=== PATIENT | male | born 1975 | race Caucasian/White ===

== ENCOUNTER 2022-06-05 09:30 | Outpatient (CLI) | payer OTHER, SELFPAY ==
[2022-06-05 09:52] LABS: Hematocrit 41.8 % (42.0-52.0); Hemoglobin 13.9 g/dL (14.0-18.0); Mean Corpuscular HGB Conc 33.3 g/dl (32-36); Mean Corpuscular Hemoglobin 30.5 pg (26-34); Mean Corpuscular Volume 91.7 fl (80-100); Platelet Count Result 191 k/mm3 (150-375); Red Blood Count 4.56 M/mm3 (4.6-6.20); Red Cell Distribution Width 12.2 % (11.5-14.5); White Blood Count 4.5 K/mm3 (4.5-10.0)
[2022-06-05 10:09] LABS: Alanine Aminotransferase 25 U/L (6-50); Albumin Level 4.9 g/dL (3.5-5.1); Alkaline Phosphatase 57 U/L (38-126); Anion Gap 11 mmol/L (8-16); Aspartate Amino Transferase 33 U/L (17-59); Bilirubin,Total 0.9 mg/dL (0.2-1.3); Blood Urea Nitrogen 15 mg/dL (9-20); Calcium 9.1 mg/dL (8.4-10.2); Carbon Dioxide 25 mmol/L (22-30); Chloride 101 mmol/L (98-107); Cholesterol 252 mg/dL (0-200); Estimated Glomerular Filt Rate > 60; Glucose 100 mg/dL (65-110); HDL Direct 46 mg/dL; Potassium 4.2 mmol/L (3.4-5.0); Sodium 137 mmol/L (137-145); Triglycerides 99 mg/dL (<150)
[2022-06-05 10:20] LABS: LDL Cholesterol Direct 157 mg/dL
[2022-06-05 10:39] LABS: Prostate Specific Antigen 0.2 ng/mL (< OR = 4.0)
[2022-06-05 11:25] LABS: Folic Acid > 20.0 ng/mL (2.76->20)
== END 2022-06-05 09:31 | disposition home or self-care (01) ==
LOC: ANHLAB 09:31
PROVIDERS: PCP Physician Assistant; Visit Provider Physician Assistant
DX: Z00.00 Encounter for general adult medical examination without abnormal findings (principal); Z12.5 Encounter for screening for malignant neoplasm of prostate
CPT/HCPCS: 36415; 80053; 80061; 82607; 82746; 84153; 84443; 85027; G0103

== ENCOUNTER → 2022-06-21 11:47 | Outpatient (CLI) | payer OTHER, SELFPAY ==
--- NOTE | ~2022-06-21 | MR_ITS ---
EXAMINATION: MR elbow LT wo con DATE: 06/21/2022 12:42 INDICATION: Unspecified injury of left shoulder and upper arm, initial evaluation. Left elbow pain. TECHNIQUE: Magnetic resonance imaging (MRI) of the left elbow was performed without intravenous contr ast. COMPARISON: Left elbow radiographs 06/08/2022 FINDINGS: Osseous/other: Bone alignment is normal. No fracture. Bone marrow signal intensity is normal. There is shallow parti al-thickness cartilage loss in ulnohumeral joint. Tendons: The common flexor and common extensor tendons are normal. Triceps tendon is normal. Brachialis tendon is normal. There is a partial tear of distal biceps tendon. Ligaments: Radial collateral ligament, lateral ulnar collateral ligament, and ulnar collateral ligament are norm al. Cubital tunnel: The ulnar nerve is normal. Fluid: There is no elbow joint effusion. There is mild bicipitoradial bursitis. IMPRESSION: 1. Partial tear of distal biceps tendon. 2. Mild elbow joint chondrosis. Reviewed, dictated and finalized at location A. [employer]
== END ==
PROVIDERS: PCP Internal Medicine; Visit Provider Orthopaedic Surgery
DX: S49.82XA Other specified injuries of left shoulder and upper arm, initial encounter (principal); X58.XXXA Exposure to other specified factors, initial encounter
CPT/HCPCS: 73221

== ENCOUNTER 2022-07-17 01:19 | Day surgery (SDC) | payer OTHER, SELFPAY ==
[2022-07-17 12:35] VITALS: BP 129/78; PULSE 69; RESP 15; TEMP 36.4; O2SAT 99; BMI 25.9
[2022-07-17] MEDS: LACTATED RINGERS 1,000 ML 150 ML IV CONT (12:45)
--- NOTE | 2022-07-17 13:03 | WPDANESEPPF ---
Anes - Initial Pre Proc Eval Procedure: Operation Date: 07/17/22 14:00 Proposed Procedures p Screening Colonoscopy - Armin Vazquez MD Date/Time: 07/17/22 13:03 Surgeon: Armin Vazquez MD Pre Op Diagnosis: neoplasm screening Patient Data Age: 47 Gender: M Height: 1.75 m Weight: 79.8 kg Last Vital Signs Temp 36.4 C L 07/17/22 12:35 Pulse 69 07/17/22 12:35 Resp 15 07/17/22 12:35 BP 129/78 07/17/22 12:35 Pulse Ox 99 07/17/22 12:35 O2 Del Method Room Air 07/17/22 12:35 Allergies Allergy/AdvReac Type Severity Reaction Status Date / Time No Known Allergies Allergy Verified 07/17/22 12:31 Home Medications Medication Instructions Recorded Confirmed Type cetirizine 10 mg tablet (Zyrtec) 10 mg PO DAILY allergy symptoms 12/01/21 07/17/22 Rx #90 tabs fluticasone propionate 50 2 spray intranasal DAILY #16 grams 12/01/21 07/17/22 Rx mcg/actuation nasal spray,suspension (Flonase Allergy Relief) triamcinolone acetonide 0.1 % 1 applic topical BID #80 grams 12/01/21 07/17/22 Rx topical cream bupropion HCl 300 mg 24 hr tablet, 300 mg PO QAM 05/01/22 07/17/22 History extended release (Wellbutrin XL) atomoxetine 80 mg capsule 80 mg PO DAILY 06/05/22 07/17/22 History (Strattera) pramipexole 0.125 mg tablet 0.375 mg PO QHS #270 tabs 07/13/22 07/17/22 Rx (Mirapex) Patient hx anesthesia problems: none Family hx anesthesia problems: none Results Review: All pre-operative results and documents have been reviewed as part of the pre-operative evaluation. FOR[facility]LY [facility], LAT[facility] Past Medical History Medical History Allergies Anxiety Chronic headaches Gastric ulcer GERD (gastroesophageal reflux disease) Left upper arm injury Migraine Surgical History Surgical History History of vasectomy Family History Family History Father Thyroid disorder Sibling Alcoholism Unknown Depression Grandparent Breast cancer Social History Social History Smoking packs per day: 1 Smoking cigarettes per day: 20.0 Smoking status: Former smoker Tobacco type: cigarettes Second hand tobacco smoke exposure: No Smoking end date: 08/13/05 Alcohol intake: current Substance use: unknown Lack of Transportation: No Lack of Food: Never True Current Housing: I Have Housing Concerned About Future Housing: No Difficulty Paying for Meds: No Currently Unemployed: No Education: Master's Degree or Higher Difficulty w/ Childcare or Family Care: No Living arrangements: with family Gender identity (if verbalized by the patient): Male Anes - Eval Final PreProcedure Day of Procedure 07/17/22 13:03 Patient weight: normal Heart: regular rate and rhythm Lungs: clear to auscultation Airway: Mallampati scale class II Neurological: alert and oriented ASA classification: II Emergent: no Anesthetic plan: proceed Anesthesia type and monitoring: general GIVS and standard monitoring Results Review: All pre-operative results and documents have been reviewed as part of the pre-operative evaluation. Informed Consent: The patient's anesthetic plan and its attendant risks and benefits were discussed with the patient/family/POA. Questions were solicited and answers provided to the satisfaction of the patient/family/POA.
--- NOTE | 2022-07-17 13:24 | PM.HPGS ---
History of Present Illness History of Present Illness Consent: Risks, benefits, and alternatives have been discussed and questions answered. Patient agrees to proceed with procedure. Chief complaint: neoplasm screening Narrative: María Vale is a 47 year old male Presents for neoplasia screening colonoscopy. Patient's current weight appetite and bowel movements are normal. Patient denies abdominal pain. He has had no bleeding. Family history is noncontributory. Review of Systems Review of Systems: Review of systems noncontributory. FORMERLY [facility] Past Medical History Medical History Allergies Anxiety Chronic headaches Gastric ulcer GERD (gastroesophageal reflux disease) Left upper arm injury Migraine Surgical History Surgical History History of vasectomy Family History Family History Father Thyroid disorder Sibling Alcoholism Unknown Depression Grandparent Breast cancer Social History Social History Smoking packs per day: 1 Smoking cigarettes per day: 20.0 Smoking status: Former smoker Tobacco type: cigarettes Second hand tobacco smoke exposure: No Smoking end date: 08/13/05 Alcohol intake: current Substance use: unknown Lack of Transportation: No Lack of Food: Never True Current Housing: I Have Housing Concerned About Future Housing: No Difficulty Paying for Meds: No Currently Unemployed: No Education: Master's Degree or Higher Difficulty w/ Childcare or Family Care: No Living arrangements: with family Gender identity (if verbalized by the patient): Male Meds Home Medications and Allergies Home Medications Medication Instructions Recorded Confirmed Type cetirizine 10 mg tablet (Zyrtec) 10 mg PO DAILY allergy symptoms 12/01/21 07/17/22 Rx #90 tabs fluticasone propionate 50 2 spray intranasal DAILY #16 grams 12/01/21 07/17/22 Rx mcg/actuation nasal spray,suspension (Flonase Allergy Relief) triamcinolone acetonide 0.1 % 1 applic topical BID #80 grams 12/01/21 07/17/22 Rx topical cream bupropion HCl 300 mg 24 hr tablet, 300 mg PO QAM 05/01/22 07/17/22 History extended release (Wellbutrin XL) atomoxetine 80 mg capsule 80 mg PO DAILY 06/05/22 07/17/22 History (Strattera) pramipexole 0.125 mg tablet 0.375 mg PO QHS #270 tabs 07/13/22 07/17/22 Rx (Mirapex) Allergies Allergy/AdvReac Type Severity Reaction Status Date / Time No Known Allergies Allergy Verified 07/17/22 12:31 Vital Signs Vital Signs - 24 hr 07/17/22 12:35 Temperature 97.5 F L Pulse Rate 69 Respiratory Rate 15 Blood Pressure 129/78 Pulse Oximetry 99 Oxygen Delivery Room Air Exam Narrative: Physical exam reveals patient to be alert. Vital signs stable. HEENT exam is unremarkable. Patient is anicteric. Lungs are clear to auscultation and percussion. Heart is without murmur or extra sounds. Abdomen bowel sounds present soft nontender with no organomegaly. Digital external rectal exam normal. Assessment and Plan Assessment and plan (1) Encounter for screening colonoscopy: Code(s): Z12.11 - Encounter for screening for malignant neoplasm of colon Status: Acute Assessment and Plan: Patient presents for screening colonoscopy. He appears to be at average risk for colon polyps. Further recommendations may be given after endoscopy.
[2022-07-17 13:53] VITALS: BP 106/67; PULSE 68; RESP 15; O2SAT 98
[2022-07-17 14:03] VITALS: BP 101/67; PULSE 67; RESP 24; O2SAT 98
[2022-07-17 14:13] VITALS: BP 108/74; PULSE 65; RESP 12; O2SAT 100
== END 2022-07-17 14:17 | disposition home or self-care (01) ==
PROVIDERS: PCP Internal Medicine; Visit Provider Internal Medicine Gastroenterology
PROC: 0DJD8ZZ Inspection of Lower Intestinal Tract, Via Natural or Artificial Opening Endoscopic (ICD-10-PCS; CPT 45378; principal; 2022-07-17 14:00)
DX: Z12.11 Encounter for screening for malignant neoplasm of colon (principal); K64.8 Other hemorrhoids; K21.9 Gastro-esophageal reflux disease without esophagitis; F41.9 Anxiety disorder, unspecified; Z87.891 Personal history of nicotine dependence
CPT/HCPCS: 45378; J2704; J7120

== ENCOUNTER 2022-09-02 17:26 | Emergency (ER) | payer OTHER, SELFPAY ==
[2022-09-02 18:16] VITALS: BP 136/92; PULSE 79; RESP 20; TEMP 36.6; O2SAT 98
--- NOTE | 2022-09-02 18:36 | ED.WOUNDLAC ---
HPI - Wound/Laceration General Chief Complaint: Wound/Laceration Stated Complaint: FINGER LAC Time Seen by Provider: 09/02/22 18:35 History of Present Illness HPI narrative: 47-year-old male presents emergency room for evaluation of a laceration to his left index finger. Patient states he was using a circular saw just prior to arrival when he was in pain attention accidentally cut himself. Tetanus is up-to-date. No other injuries. Related Data Home Medications Medication Instructions Recorded Confirmed bupropion HCl 300 mg 24 hr tablet, 300 mg PO QAM 05/01/22 07/17/22 extended release (Wellbutrin XL) atomoxetine 80 mg capsule 80 mg PO DAILY 06/05/22 07/17/22 (Strattera) Allergies Allergy/AdvReac Type Severity Reaction Status Date / Time No Known Allergies Allergy Verified 07/17/22 12:31 Review of Systems Review of Systems: CONSTITUTIONAL: Denies fever, chills, or sweats. EYES: Denies visual changes, redness, or discharge. ENT: Denies rhinorrhea, congestion, sore throat, or otalgia. CARDIOVASCULAR: Denies chest pain, palpitations, or edema. RESPIRATORY: Denies cough or dyspnea. GASTROINTESTINAL: Denies abdominal pain, nausea, vomiting, or diarrhea. GENITOURINARY: Denies dysuria or hematuria. SKIN: Laceration left index finger MUSCULOSKELETAL: Denies back pain, joint pain, or myalgia. NEUROLOGIC: Denies headache, numbness, dizziness, or weakness. PSYCHIATRIC: Denies anxiety or depression. FOR[facility]LY [facility] Past Medical History Medical History Allergies Anxiety Chronic headaches Gastric ulcer GERD (gastroesophageal reflux disease) Left upper arm injury Migraine Surgical History Surgical History History of vasectomy Family History Family History Father Thyroid disorder Sibling Alcoholism Unknown Depression Grandparent Breast cancer Social History Social History Smoking packs per day: 1 Smoking cigarettes per day: 20.0 Smoking status: Former smoker Tobacco type: cigarettes Second hand tobacco smoke exposure: No Smoking end date: 08/13/05 Alcohol intake: current Substance use: unknown Lack of Transportation: No Lack of Food: Never True Current Housing: I Have Housing Concerned About Future Housing: No Difficulty Paying for Meds: No Currently Unemployed: No Education: Master's Degree or Higher Difficulty w/ Childcare or Family Care: No Living arrangements: with family Occupation/Education: occupation Gender identity (if verbalized by the patient): Male Exam Narrative: GENERAL: Well-appearing, well-nourished, no physical limitations, and in no acute distress. HEAD: Normocephalic, atraumatic. EYES: Conjunctivae normal, PERRLA and EOMI. CHEST: Clear to auscultation. No respiratory distress. No wheezes rales or rhonchi. HEART: Regular rate and rhythm. No murmur heard. Normal peripheral pulses. EXTREMITIES: Normal range of motion. No edema. No clubbing or cyanosis SKIN: Superficial stylet laceration to the pad of the left index finger NEURO: No focal deficits. Alert and oriented x3. MAEW. CN's II-XI intact bilaterally, normal gait PSYCH: Cooperative. Normal mood and affect. Course Vital Signs Vital signs: Vital Signs Temperature 36.6 C 09/02/22 18:16 Pulse Rate 79 09/02/22 18:16 Respiratory Rate 20 09/02/22 18:16 Blood Pressure 136/92 H 09/02/22 18:16 Pulse Oximetry 98 09/02/22 18:16 Oxygen Delivery Room Air 09/02/22 18:16 Temperature 36.6 C 09/02/22 18:16 Pulse Rate 79 09/02/22 18:16 Respiratory Rate 20 09/02/22 18:16 Blood Pressure 136/92 H 09/02/22 18:16 Pulse Oximetry 98 09/02/22 18:16 Oxygen Delivery Room Air 09/02/22 18:16 Procedures Laceration Laceration 1: Date: 08/14
== END 2022-09-02 19:05 | disposition home or self-care (01) ==
LOC: ANHED 18:43
PROVIDERS: Emergency Provider Nurse Practitioner Family; PCP Physician Assistant
DX: S61.211A Laceration without foreign body of left index finger without damage to nail, initial encounter (principal); K21.9 Gastro-esophageal reflux disease without esophagitis; F41.9 Anxiety disorder, unspecified; Z87.891 Personal history of nicotine dependence; W31.2XXA Contact with powered woodworking and forming machines, initial encounter
CPT/HCPCS: 12001; 99283

== ENCOUNTER 2022-11-20 15:41 | Outpatient (CLI) | payer OTHER, SELFPAY ==
--- NOTE | ~2022-11-20 | XR_ITS ---
XR cervical spine 4-5V INDICATION: Neck pain. Cervicalgia. TECHNIQUE: 4 views of the cervical spine. FINDINGS: No prior studies for comparison. The cervical spine is visualized to the cervicothoracic junction. There is no prevertebral soft tiss ue swelling, listhesis, or loss of vertebral body height. Intervertebral disc spaces are normal. Th e osseous central canal is patent. No displaced cervical spine fractures are identified. IMPRESSION: 1. No significant osseous abnormality of the cervical spine. Reviewed, dictated and finalized at location B.
--- NOTE | ~2022-11-20 | XR_ITS ---
EXAM: XR thoracic spine 3V DATE: 11/20/2022 16:11 HISTORY: M54.9 - Dorsalgia, unspecified . COMPARISON: None available. FINDINGS: Vertebral body alignment intact. Vertebral body heights preserved. No disc space narrowing . No traumatic malalignment or fracture. Visualized lung parenchyma is clear. IMPRESSION: Unremarkable thoracic spine radiograph findings. Reviewed, dictated and finalized at location K.
== END 2022-11-20 15:42 | disposition home or self-care (01) ==
LOC: ANHIMG 15:44
PROVIDERS: PCP Physician Assistant; Visit Provider Physician Assistant
DX: M54.2 Cervicalgia (principal); M54.9 Dorsalgia, unspecified
CPT/HCPCS: 72050; 72072

== ENCOUNTER 2023-02-15 13:34 | Outpatient (CLI) | payer OTHER, SELFPAY ==
--- NOTE | 2023-02-15 14:15 | NEURO_ITS ---
Impression: # Complains of right upper extremity restlessness. History of Restless Leg Syndrome. # Evolving mild Carpal Tunnel Syndrome. # No ulnar neuropathy. # No evidence of neuropathy. # Normal needle/EMG. Nerve Conduction Studies Anti Sensory Summary Table Stim Site NR Peak (ms) P-T Amp (?V) Site1 Site2 Delta-P (ms) Dist (cm) Victorino (m/s) Right Median Anti Sensory (2-3nd Digit) Wrist 3.0 58.1 Wrist 2-3nd Digit 3.0 14.0 47 Wrist 2.9 63.9 Wrist 2-3nd Digit 3.0 14.0 47 Right Radial Anti Sensory (Base 1st Digit) Wrist 2.3 20.0 Wrist Base 1st Digit 2.3 0.0 Right Ulnar Anti Sensory (5th Digit) Wrist 2.8 47.0 Wrist 5th Digit 2.8 14.0 50 Motor Summary Table Stim Site NR Onset (ms) O-P Amp (mV) Site1 Site2 Delta-0 (ms) Dist (cm) Victorino (m/s) Right Median Motor (Abd Poll Brev) Wrist 3.4 8.0 Elbow Wrist 5.0 28.0 56 Elbow 8.4 4.0 Right Ulnar Motor (Abd Dig Minimi) Wrist 2.2 8.1 A Elbow Wrist 5.1 30.0 59 A Elbow 7.3 6.5 F Wave Studies NR F-Lat (ms) L-R F-Lat (ms) Right Median (Mrkrs) (Abd Poll Brev) 29.55 Right Ulnar (Mrkrs) (Abd Dig Min) 27.97 EMG Side Muscle Nerve Root Ins Act Fibs Amp Dur Recrt Comment Right 1stDorInt Ulnar C8-T1 Nml Nml Nml Nml Nml Right Ext Indicis Radial (Post Int) C7-8 Nml Nml Nml Nml Nml Right Ext Digitorum Radial (Post Int) C7-8 Nml Nml Nml Nml Nml Right BrachioRad Radial C5-6 Nml Nml Nml Nml Nml Right PronatorTeres Median C6-7 Nml Nml Nml Nml Nml Right Abd Poll Brev Median C8-T1 Nml Nml Nml Nml Nml MTDD
== END 2023-02-15 13:35 | disposition home or self-care (01) ==
LOC: ANHNEURO 13:35
PROVIDERS: PCP Physician Assistant; Visit Provider Physician Assistant
DX: G25.81 Restless legs syndrome (principal); G56.00 Carpal tunnel syndrome, unspecified upper limb
CPT/HCPCS: 95886; 95909

== ENCOUNTER 2024-04-28 14:02 | Outpatient (CLI) | payer OTHER, SELFPAY ==
[2024-05-03 02:43] LABS: Testosterone Free 61.6 pg/mL (35.0-155.0); Testosterone Total 283 ng/dL (250-1100)
== END 2024-04-28 14:03 | disposition home or self-care (01) ==
LOC: ANHLAB 14:04
PROVIDERS: PCP Physician Assistant; Visit Provider Internal Medicine
DX: N52.9 Male erectile dysfunction, unspecified (principal)
CPT/HCPCS: 36415; 84402; 84403

== ENCOUNTER 2024-10-21 11:27 | Outpatient (CLI) | payer OTHER, SELFPAY ==
--- NOTE | ~2024-10-21 | XR_ITS ---
XR hip LT min 2V Ordering provider: Bran Cantrell APRN History: . LT HIP PAIN 3-4 DAYS, PAIN WITH CERTAIN MOVEMENTS, NO INJURY . Comparison: None. FINDINGS: BONES: No acute fracture or dislocation. HIP JOINT SPACES: Normal. SACROILIAC JOINT SPACES/LUMBAR SPINE: The sacroiliac joint spaces are normal. Normal visualized lower lumbar spine. PUBIC SYMPHYSIS: Normal. SOFT TISSUES: Normal. IMPRESSION: No acute osseous abnormality pelvis and left hip. Reviewed, dictated and finalized at location A.
--- OUTSIDE RECORDS SUMMARY | 2024-10-21 13:16 | XMS_ITS | Clinical Summary ---
Author Organization [facility] Address [address] [place] [id number] Care Team Providers Care Manager Field Name Role Phone None, Provider MD Primary Care Provider Unavaila ble Allergies No known active allergies Medications predniSONE 20 MG tablet Take 3 tabs x 3 days, then 2 tabs x 3 days, then 1 tab x 3 days 18 tablet 06/14/2020 Active Active Problems No known active problems Social History Tobacco Use Types Packs/Day Years Used Date Smoking Tobacco: Never Smokeless Tobacco: Never Alcohol Use Standard Drinks/Week Comments Not Currently 0 (1 standard drink = 0.6 oz pur e alcohol) socially Sex and Gender Information Value Date Recorded Sex Assigned at Not on file Legal Sex Male 9:59 AM RN [facility] Gender Identity Not on file Sexual Orientation Not on file Last Filed Vital Signs Vital Sign Reading Time Taken Comments Blood Pressure 132/78 06/14/2020 12:11 PM RN [facility] Pulse 77 06/14/2020 12:11 PM RN [facility] Temperature 36.8 C (98.2 F) 06/14/2020 10:06 AM RN [facility] Respiratory Rate 16 06/14/2020 12:11 PM RN [facility] Oxygen Saturation 99% 06/14/2020 12:11 PM RN [facility] Inhaled Oxygen Concentration - - Weight 82 kg (180 lb 12.4 oz) 06/14/2020 10:06 A M [facility] Height 177.8 cm (5' 10 ) 06/14/2020 10:06 AM RN [facility] Body Mass Index 25.94 06/14/2020 10:06 AM RN [facility] Plan of Treatment Health Maintenance Due Date Last Done Comments Colorectal Cancer Screening Colonoscopy (10 Years) 1976 Annual Physical 1979 Hepatitis C 1994 DTaP, Tdap and Td Vaccines ( 1 - Tdap) 1995 Hepatitis B Vaccines (1 of 3 - 19+ 3-dose series) 1995 COVID-19 Vaccine (2023-2 5 season) 2024 Influenza Adult (#1) 2024 Meningococcal B Vaccine Aged Out No l onger eligible based on patient's age to complete this topic Meningococcal Vaccine Aged Out No charles onesimo eligible based on patient's age to complete this topic Pneumococcal Vaccine: Pediat rics (0 to 5 Years) and At-Risk Patients (6 to 64 Years) Aged Out No longer eligible b ased on patient's age to complete this topic RSV Immunizations Under 20 Months Aged Out No longer eligible based on patient's age to complete this topic Insurance [facility] Care Teams Manager Field Relationship Specialty Start Date End Date None, Provider, PCP - General 06/14/20
--- OUTSIDE RECORDS SUMMARY | 2024-10-21 13:17 | XMS_ITS | Continuity of Care Document ---
Author Name [facility] Organization [facility] Care Team Providers Care Hub Lead Name Role Phone [facility] Unavailable Unavailable Problems Combined list of problems from Department of Defense and Veterans Affairs facilities. It does not include entries that were removed or entered in error. Problem Status Onset Date Problem Type Date of Resolution Comments Source Nondisplaced fracture of triquetrum [cuneiform] bone, right wrist Active 07/30/20 18 Condition DoD Dorsalgia, unspecified Active 04/10/20 17 Condition DoD subungual hematoma Inactive 11/23/19 17 Condition DoD diarrhea Inactive 11/07/19 17 Condition [facility] visit for: services physical pre-deployment Inactive 09/19/19 11 Condition DoD Need For Vaccination Against Influenza Inactive Condition DoD abdominal pain in the central upper belly (epigastric) Inactive Condition DoD pharyngitis acute Inactive Condition DoD nephrolithiasis left Inactive Condition DoD warts Inactive Condition DoD streptococcal infection group B Inactive Condition DoD cellulitis of the right hand Inactive Condition DoD nephrolithiasis Inactive Condition DoD hematuria Inactive Condition pt saw blo od at beginning of stream DoD nicotine dependence Active Condition Do D visit for: services physical Inactive Condition DoD Body Mass Index Inactive Condition DoD overweight Inactive Condition DoD unspecified muscle strain Inactive Condition DoD neuritis sciatic Inactive Condition DoD dermatitis Inactive Condition Hand derm atitis, possibly has metal allergy given that the worst area is usually left middle finger adjacent to his wedding ring. Will do trial of switching ring to other hands. Educated on hand care/moisturizati on and proper use of clobetasol. He is mild right now and should be able to manage with these measures alone, RTC PRN DoD visit for: administrative purpose Inactive Condition client is TDY i n [facility] arthritis Active Condition DoD atopic dermatitis Inactive Condition No suzy from recent visits and derm reviewed. Will increase hydrocortisone to triamcinalone, as atarax prescribed by another provider is ineffective. Due to SE of that medication, and apparent ineffectiveness, would d/c. Also, due to concerns about risk for cellulitis (none currently) will add bactroban. Continue cetaphil/eucerin. Referral re-entered. DoD visit for: screening exam malignant neoplasm skin Inactive Condition Normal appearin g moles (2) on back between shoulder blades. DoD dyshidrosis Inactive Condition Left mauro d only. Discussed using Cetaphil moisturizing cream at least BID. Provided Hydrocortisone cream 1% for flares. Recommended increased hydration. DoD visit for: sterilization Inactive Condition See overprint DoD itching (pruritus) Inactive Condition Do D impetigo Inactive Condition DoD Patient Counseling: Inactive Condition D oD Medications Combined list of outpatient medications from Department of Defense and Veterans Affairs facilities.Medications provided include 1) outpatient medications from the last 15 months, and 2) patient-reported medications. Medication Details Route Status Patient Instructions Prescription Expires Prescription Number Last Dispense Date Ordering Provider Order Date Order Qty Source buPROPion XL 300 mg/24 hour tablet See Instruct ions, # 90 EA, 1 total refill(s ), Hard Stop Ordered 09/03/2025 5 2024 90.0 Ambulat ory Pharmac y buPROPion XL 300 mg/24 hour tablet 300 mg, Oral, every morning, # 90 EA, 1 total refill(s ), Hard Stop Oral (given by mouth) Complet ed 04/19/2024 3 2023 90.0 Ambulat ory Pharmac y buPROPion XL 300 mg/24 hour tablet 300 mg, Oral, every morning, # 90 EA, 1 total refill(s ), Hard Stop Oral (given by mouth) Discont inued 09/04/2024 4 2024 90.0 Ambulat ory Pharmac y CETIRIZINE HCL (cetirizine HCl), 10 MG, TABLET, ORAL, 'S LAB, 500 ea. BOTTLE Cancele d [id number] : 2023 0 Pharmac y Data Transac tion Service Facilit y FLUTICASONE PROPIONATE (FLUTICASON E PROPIONATE) , 50MCG, SPRAY SUSP, NASAL, MAYELIN LABS., 16 g AER W/ADAP Cancele d [id number] : 2023 0 Pharmac y Data Transac tion Service Facilit y Hydrocortis one Valerate (Westcort Eq.) Cream 0.2% Topical For external use. 09/23/2024 [id number] 4 [address] [place] [address] Group Michael DIALLO [place] hydrocortis one valerate 0.2% cream [60g] See Instruct jose Topical, # 60 g, 1 total refill(s ), Hard Stop Topica l (on the skin) Complet ed 09/23/2024 4 2024 60.0 Ambulat ory Pharmac y pramipexole 0.125 mg tablet 0.375 mg, Oral, Daily, # 270 EA, 2 total refill(s ), Hard Stop Oral (given by mouth) Ordered 06/12/2025 5 2024 270.0 Ambulat ory Pharmac y pramipexole 0.125 mg tablet See dose instruct ions in comments , # 270 EA, 1 total refill(s ), Acute Complet ed 12/06/2023 3 2023 270.0 Ambulat ory Pharmac y pramipexole 0.125 mg tablet See Instruct ions, # 270 EA, 1 total refill(s ), Hard Stop Complet ed 05/24/2024 4 2023 270.0 Ambulat ory Pharmac y pramipexole 0.125 mg tablet 0.375 mg, Oral, every day at bedtime, # 270 EA, 1 total refill(s ), Hard Stop Oral (given by mouth) Ordered 11/28/2024 4 2023 270.0 Ambulat ory Pharmac y Pramipexole Dihydrochlo ride 0.125mg, (Mirapex), Tablet, Oral Do not drink alcohol. Take with food/mil k.Obtain advice for OTCs.May cause drowsine ss/dizzi ness.May impair driving. Check with your doctor before becoming . Active 11/28/2024 [id number] 4 [address] [place] [address] Michael DIALLO ([facility] tadalafil 10 mg tablet See Instruct ions, # 15 EA, 3 total refill(s ), Hard Stop Discont inued 09/04/2024 4 2024 15.0 Ambulat ory Pharmac y tadalafil 10 mg tablet See Instruct ions, # 15 EA, 7 total refill(s ), Hard Stop Ordered 09/03/2025 5 2024 15.0 Ambulat ory Pharmac y Allergies, Adverse Reactions, Alerts Combined list of allergies from Department of Defense and Veterans Affairs facilities. It does not include entries that were removed or entered in error. Substance Category Reaction Severity Reaction type Status Date Reported Comments Source No Known Allergies Drug allergy (disorder) active 04/29/2008 [facility] Immunizations Combined list of available immunizations from the Department of Defense and Veterans Affairs facilities. Immunization Series Date Given Administered By Site Reaction Lot Number CVX Code Drug Coordinator Mining Products Status Comments Source COVID Vaccine Moderna 2020 [id number] complet ed COVID Vaccine Moderna 09/17/20 Given Ambulat ory Pharmac y SARS-COV-2 (COVID-19) vaccine, mRNA, spike protein, LNP, preservative free, 100 mcg or 50 mcg dose 2 2020 [id number] 207 Moderna US, Inc. (MOD) complet ed SARS-COV- 2 (COVID-19 ) vaccine, mRNA, spike protein, LNP, preservat surya free, 100 mcg or 50 mcg dose DoD COVID Vaccine Moderna 2020 [id number] complet ed COVID Vaccine Moderna 08/20/20 Given Ambulat ory Pharmac y SARS-COV-2 (COVID-19) vaccine, mRNA, spike protein, LNP, preservative free, 100 mcg or 50 mcg dose 1 2020 [id number] 207 Moderna [employer], Inc. (MOD) complet ed SARS-COV- 2 (COVID-19 ) vaccine, mRNA, spike protein, LNP, preservat surya free, 100 mcg or 50 mcg dose DoD influenza, injectable, quadrivalent- pf 2018 [id number] 150 Seqirus complet ed influenza , injectabl e, quadrival ent-pf 08/11/19 Given Ambulat ory Pharmac y Influenza, injectable, quadrivalent, preservative free 22 2018 [id number] 150 Seqirus (SEQ) complet ed Influenza , injectabl e, quadrival ent, preservat surya free DoD influenza, injectable, quadrivalent- pf 2017 [id number] 150 GlaxoSmithKli ne complet ed influenza , injectabl e, quadrival ent-pf 05/28/18 Given Ambulat ory Pharmac y Influenza, injectable, quadrivalent, preservative free 21 2017 [id number] 150 [employer] (SKB) complet ed Influenza , injectabl e, quadrival ent, preservat surya free DoD tetanus-dipht h toxoids (Td) adult/adol 2017 [id number] [place] [employer] complet ed tetanus-d iphth toxoids (Td) adult/ado l 04/30/18 Given Ambulat ory Pharmac y tetanus and diphtheria toxoids, adsorbed, preservative free, for adult use (2 Lf of tetanus toxoid and 2 Lf of diphtheria toxoid) 3 2017 [id number] 09 [facility] ([facility]) complet ed tetanus and diphtheri a toxoids, adsorbed, preservat surya free, for adult use (2 Lf of tetanus toxoid and 2 Lf of diphtheri a toxoid) DoD influenza, injectable, quadrivalent- pf 2016 [id number] 150 GlaxoSmithKli ne complet ed influenza , injectabl e, quadrival ent-pf 07/13/17 Given Ambulat ory Pharmac y Influenza, injectable, quadrivalent, preservative free 20 2016 [id number] 150 Smithine (SKB) complet ed Influenza , injectabl e, quadrival ent, preservat surya free DoD influenza, seasonal, injectable-pf 2015 [id number] 140 Seqirus complet ed influenza , seasonal, injectabl e-pf 06/13/16 Given Ambulat ory Pharmac y Influenza, seasonal, injectable, preservative free 19 2015 [id number] 140 Seqirus (SEQ) comple t ed Influenza , seasonal, injectabl e, preservat surya free DoD yellow fever vaccine 2015 zzLef t Arm [id number] 37 sanofi pasteur complet ed yellow fever vaccine 11/05/15 Given Ambulat ory Pharmac y yellow fever vaccine 1 2015 LE ROSAURA Miranda [id number] 37 Sanofi Pasteur (PMC) complet ed yellow fever vaccine DoD varicella virus vaccine 1 2015 UNK 21 Unknown (UNK) Not Given varicella virus vaccine DoD meningococcal A,C,Y,W-135 (MCV4P) 2015 zzLef t Arm [id number] sanofi pasteur complet ed meningoco ccal A,C,Y,W-1 35 (MCV4P) 10/21/15 Given Ambulat ory Pharmac y typhoid Vi capsular polysaccharid e vac 2015 zzLef t Arm [id number] 101 sanofi pasteur complet ed typhoid Vi capsular polysacch aride vac 10/21/15 Given Ambulat ory Pharmac y typhoid Vi capsular polysaccharid e vaccine 1 2015 BAUERPARISA [id number] 101 Sanofi Pasteur (PMC) complet ed typhoid Vi capsular polysacch aride vaccine DoD meningococcal polysaccharid e (groups A, C, Y and W-135) diphtheria toxoid conjugate vaccine (MCV4P) 1 2015 PARISA BAUER [id number] 114 Sanofi Pasteur (PMC) complet ed meningoco ccal polysacch aride (groups A, C, Y and W-135) diphtheri a toxoid conjugate vaccine (MCV4P) [facility] influenza, live, intranasal,qu adrivalent 2014 [id number] 149 Med[employer] Inc comple t ed influenza , live, intranasa l,quadriv alent 06/29/15 Given Ambulat ory Pharmac y influenza virus vaccine, live 2014 [id number] 111 Medimmune Inc comple t ed influenza virus vaccine, live 06/29/15 Given Ambulat ory Pharmac y influenza virus vaccine, live, attenuated, for intranasal use 1 2014 BAUER, PARISA [id number] 111 MedImmune, Inc. (MED) complet ed influenza virus vaccine, live, attenuate d, for intranasa l use [facility] influenza, live, intranasal, quadrivalent 1 2014 [id number] 149 MedImmune, Inc. (MED) complet ed influenza , live, intranasa l, quadrival ent [facility] influenza, live, intranasal,qu adrivalent 2013 [id number] 149 Medimmune Inc comple t ed influenza , live, intranasa l,quadriv alent 05/19/14 Given Ambulat ory Pharmac y influenza, live, intranasal, quadrivalent 1 2013 [id number] 149 [employer] Inc. (MED) complet ed influenza , live, intranasa l, quadrival ent DoD influenza virus vaccine, live [id number] [facility] comple t ed influenza virus vaccine, live 06/02/13 Given Ambulat ory Pharmac y influenza virus vaccine, live, attenuated, for intranasal use 1 2012 CAYDEN MERLE K [id number] 111 [employer] Inc. (MED) complet ed influenza virus vaccine, live, attenuate d, for intranasa l use DoD tuberculin purified protein derivative 2011 [id number] 96 sanofi pasteur complet ed tuberculi n purified protein derivativ e 08/21/11 Given Ambulat ory Pharmac y influenza, seasonal, injectable-pf 2010 [id number] 140 CSL [employer]ring complet ed influenza , seasonal, injectabl e-pf 07/28/11 Given Ambulat ory Pharmac y Influenza, seasonal, injectable, preservative free 15 2010 [id number] 140 CS [employer] (CSL) complet ed Influenza , seasonal, injectabl e, preservat surya free DoD typhoid Vi capsular polysaccharid e vac 2010 [id number] 101 sanofi pasteur complet ed typhoid Vi capsular polysacch aride vac 09/09/10 Given Ambulat ory Pharmac y anthrax vaccine 2010 [id number] 24 [employer] complet ed anthrax vaccine 09/09/10 Given Ambulat ory Pharmac y anthrax vaccine 6 2010 [id number] 24 [employer] [place] (MIP) complet ed anthrax vaccine DoD typhoid Vi capsular polysaccharid e vaccine 1 2010 [id number] 101 Sanofi Pasteur (PMC) complet ed typhoid Vi capsular polysacch aride vaccine DoD influenza virus vaccine, live 2009 [id number] 111 [employer] comple t ed influenza virus vaccine, live 07/06/10 Given Ambulat ory Pharmac y influenza virus vaccine, live, attenuated, for intranasal use 1 2009 [id number] 111 [employer] Inc. (MED) complet ed influenza virus vaccine, live, attenuate d, for intranasa l use DoD Novel influenza-H1N 1-09, injectable 2009 [id number] 127 Novartis [employer] ls complet ed Novel influenza -S4A1-80, injectabl e 10/07/09 Given Ambulat ory Pharmac y Novel influenza-H1N 1-09, injectable 1 2009 [id number] 127 Novartis Pharmaceutica l [place]. (NOV) complet ed Novel influenza -X0S4-17, injectabl e DoD influenza virus vaccine, live 2008 [id number] 111 [employer] comple t ed influenza virus vaccine, live 05/14/09 Given Ambulat ory Pharmac y influenza virus vaccine, live, attenuated, for intranasal use 1 2008 [id number] 111 [employer], [email or web address] (MED) complet ed influenza virus vaccine, live, attenuate d, for intranasa l use DoD meningococcal A,C,Y,W-135 (MCV4P) 2007 [id number] 114 sanofi pasteur complet ed meningoco ccal A,C,Y,W-1 35 (MCV4P) 05/12/08 Given Ambulat ory Pharmac y meningococcal polysaccharid e (groups A, C, Y and W-135) diphtheria toxoid conjugate vaccine (MCV4P) 1 2007 [id number] 114 Sanofi Pasteur (PMC) complet ed meningoco ccal polysacch aride (groups A, C, Y and W-135) diphtheri a toxoid conjugate vaccine (MCV4P) DoD varicella virus vaccine 2007 [id number] 21 Merck & Company Inc complet ed varicella virus vaccine 05/06/08 Given Ambulat ory Pharmac y measles/mumps /rubella virus vaccine 2007 [id number] 03 Merck & Company Inc complet ed measles/m umps/rube lla virus vaccine 05/06/08 Given Ambulat ory Pharmac y measles, mumps and rubella virus vaccine 1 2007 [id number] 03 Merck (MSD) complet ed measles, mumps and rubella virus vaccine DoD varicella virus vaccine 1 2007 [id number] 21 Merck (MSD) complet ed varicella virus vaccine DoD influenza virus vaccine, live 2007 [id number] 111 [employer] comple t ed influenza virus vaccine, live 04/17/08 Given Ambulat ory Pharmac y influenza virus vaccine, live, attenuated, for intranasal use 1 2007 [id number] 111 [employer] Inc. (MED) complet ed influenza virus vaccine, live, attenuate d, for intranasa l use DoD tetanus, diphtheria, acellular pertu is 2007 [id number] 115 sanofi pasteur complet ed tetanus, diphtheri a, acellular pertussis 12/30/07 Given Ambulat ory Pharmac y tetanus toxoid, reduced diphtheria toxoid, and acellular pertu is vaccine, adsorbed [id number] [facility] ([facility]) complet ed tetanus toxoid, reduced diphtheri a toxoid, and acellular pertussis vaccine, adsorbed DoD influenza virus vaccine, live 2006 [id number] 111 [facility] comple t ed influenza virus vaccine, live 07/09/07 Given Ambulat ory Pharmac y influenza virus vaccine, live, attenuated, for intranasal use 1 2006 [id number] 111 [employer] (MED) complet ed influenza virus vaccine, live, attenuate d, for intranasa l use DoD influenza virus vaccine, live 2005 [id number] 111 [employer] [facility] t ed influenza virus vaccine, live 05/24/06 Given Ambulat ory Pharmac y influenza virus vaccine, live, attenuated, for intranasal use 1 2005 [id number] 111 [employer], [facility]. (MED) complet ed influenza virus vaccine, live, attenuate d, for intranasa l use [facility] influenza virus vaccine, whole virus 2004 [id number] 16 sanofi pasteur complet ed influenza virus vaccine, whole virus 07/03/05 Given Ambulat ory Pharmac y influenza virus vaccine,split 2004 [id number] 15 sanofi pasteur complet ed influenza virus vaccine,s plit 07/03/05 Given Ambulat ory Pharmac y influenza virus vaccine, split virus (incl. purified surface antigen)-reti red CODE 1 2004 [id number] 15 Sanofi Pasteur ([facility]) complet ed influenza virus vaccine, split virus (incl. purified surface antigen)- retired CODE DoD influenza virus vaccine, whole virus 1 2004 [id number] 16 Sanofi Pasteur ([facility]) complet ed influenza virus vaccine, whole virus DoD tuberculin purified protein derivative 2004 zzLef t Arm [id number] 96 sanofi pasteur complet ed Patient Tolerance : Negative Ambulat ory Pharmac y tuberculin skin test; purified protein derivative solution, intradermal 1 2004 Unknown, Provider [id number] 96 Sanofi Pasteur ([facility]) complet ed tuberculi n skin test; purified protein derivativ e solution, intraderm al DoD hepatitis B adult vaccine 2004 [id number] 43 Merck & Company Inc complet ed hepatitis B adult vaccine 02/08/05 Given Ambulat ory Pharmac y anthrax vaccine 2004 [id number] 24 [employer] complet ed anthrax vaccine 02/08/05 Given Ambulat ory Pharmac y anthrax vaccine 6 2004 [id number] 24 [employer] [place] ([facility]) complet ed anthrax vaccine DoD hepatitis B vaccine, adult dosage 3 2004 [id number] 43 Merck (MSD) complet ed hepatitis B vaccine, adult dosage DoD influenza virus vaccine, whole virus 2003 [id number] 16 sanofi pasteur complet ed influenza virus vaccine, whole virus 07/05/04 Given Ambulat ory Pharmac y vaccinia (smallpox) vaccine 2003 [id number] 75 [employer] complet ed vaccinia (smallpox ) vaccine 07/05/04 Given Ambulat ory Pharmac y influenza virus vaccine, whole virus 0 2003 [id number] 16 Sanofi Pasteur ([facility]) complet ed influenza virus vaccine, whole virus DoD vaccinia (smallpox) vaccine 0 2003 [id number] 75 [facility] ([facility]) complet ed vaccinia (smallpox ) vaccine DoD hepatitis B adult vaccine 2003 [id number] 43 Merck & Company Inc complet ed hepatitis B adult vaccine 04/28/04 Given Ambulat ory Pharmac y hepatitis B vaccine, adult dosage 2 2003 [id number] 43 Merck (MSD) complet ed hepatitis B vaccine, adult dosage DoD hepatitis B adult vaccine 2003 [id number] 43 Merck & Company Inc complet ed hepatitis B adult vaccine 03/01/04 Given Ambulat ory Pharmac y tuberculin purified protein derivative 2003 [id number] 96 sanofi pasteur complet ed tuberculi n purified protein derivativ e 03/01/04 Given Ambulat ory Pharmac y hepatitis B vaccine, adult dosage 1 2003 [id number] 43 Merck (MSD) complet ed hepatitis B vaccine, adult dosage DoD anthrax vaccine 2003 [id number] 24 [employer] complet ed anthrax vaccine 01/27/04 Given Ambulat ory Pharmac y typhoid vaccine, parenteral 2003 [id number] 41 sanofi pasteur complet ed typhoid vaccine, parentera l 01/27/04 Given Ambulat ory Pharmac y anthrax vaccine 5 2003 [id number] 24 [employer] [place] ([facility]) complet ed anthrax vaccine DoD typhoid vaccine, parenteral, other than acetone-kille d, dried 0 2003 [id number] 41 Sanofi Pasteur (PMC) complet ed typhoid vaccine, parentera l, other than acetone-k illed, dried DoD influenza virus vaccine, whole virus 2002 [id number] 16 [employer] [facility] complet ed influenza virus vaccine, whole virus 06/08/03 Given Ambulat ory Pharmac y influenza virus vaccine, whole virus 0 2002 [id number] 16 [facility] ([facility]) complet ed influenza virus vaccine, whole virus DoD anthrax vaccine 2002 [id number] 24 [employer] complet ed anthrax vaccine 12/24/02 Given Ambulat ory Pharmac y anthrax vaccine 4 2002 [id number] 24 [employer] [facility] ([facility]) complet ed anthrax vaccine DoD anthrax vaccine 2001 [id number] 24 [employer] complet ed anthrax vaccine 06/28/02 Given Ambulat ory Pharmac y anthrax vaccine 3 2001 [id number] 24 [employer] [place] ([facility]) complet ed anthrax vaccine DoD anthrax vaccine 2001 [id number] 24 [employer] complet ed anthrax vaccine 06/14/02 Given Ambulat ory Pharmac y anthrax vaccine 2 2001 [id number] 24 [facility] complet ed anthrax vaccine DoD influenza virus vaccine, whole virus 2001 [id number] 16 sanofi pasteur complet ed influenza virus vaccine, whole virus 05/31/02 Given Ambulat ory Pharmac y anthrax vaccine 2001 [id number] [employer] complet ed anthrax vaccine 05/31/02 Given Ambulat ory Pharmac y influenza virus vaccine, whole virus 0 2001 [id number] 16 Sanofi Pasteur (PMC) complet ed influenza virus vaccine, whole virus DoD anthrax vaccine 1 2001 [id number] 24 [employer] [place] (MIP) complet ed anthrax vaccine DoD meningococcal polysaccharid e (MPSV4) 2001 [id number] 32 sanofi pasteur complet ed meningoco ccal polysacch aride (MPSV4) 03/19/02 Given Ambulat ory Pharmac y meningococcal polysaccharid e vaccine (MPSV4) 0 2001 [id number] 32 Sanofi Pasteur (PMC) complet ed meningoco ccal polysacch aride vaccine (MPSV4) DoD tuberculin purified protein derivative 2001 zzRig ht Thigh 96 complet ed Patient Tolerance : Negative Ambulat ory Pharmac y tuberculin skin test; purified protein derivative solution, intradermal 1 2001 Unknown, Provider 96 () complet ed tuberculi n skin test; purified protein derivativ e solution, intraderm al DoD influenza virus vaccine, whole virus 2000 [id number] 16 sanofi pasteur complet ed influenza virus vaccine, whole virus 07/18/01 Given Ambulat ory Pharmac y influenza virus vaccine, whole virus 0 2000 [id number] 16 Sanofi Pasteur ([facility]) complet ed influenza virus vaccine, whole virus DoD influenza virus vaccine, whole virus 2000 [id number] 16 [facility] complet ed influenza virus vaccine, whole virus 09/03/00 Given Ambulat ory Pharmac y influenza virus vaccine, whole virus 0 2000 [id number] 16 [facility] ([facility]) complet ed influenza virus vaccine, whole virus DoD tuberculin purified protein derivative 1998 [id number] 96 sanofi pasteur complet ed Patient Tolerance : Negative Ambulat ory Pharmac y tuberculin skin test; purified protein derivative solution, intradermal 1 1998 Unknown, Provider [id number] 96 Sanofi Pasteur (PMC) complet ed tuberculi n skin test; purified protein derivativ e solution, intraderm al DoD influenza virus vaccine, whole virus 1998 [id number] 16 sanofi pasteur complet ed influenza virus vaccine, whole virus 06/22/99 Given Ambulat ory Pharmac y influenza virus vaccine, whole virus 0 1998 [id number] 16 Sanofi Pasteur (PMC) complet ed influenza virus vaccine, whole virus DoD influenza virus vaccine, whole virus [id number] [facility] influenza virus vaccine, whole virus 05/27/98 Given Ambulat ory Pharmac y typhoid vaccine, live, oral 1997 [id number] 25 [employer] [place] complet ed typhoid vaccine, live, oral 05/27/98 Given Ambulat ory Pharmac y influenza virus vaccine, whole virus 0 [id number] [facility] virus vaccine, whole virus DoD typhoid vaccine, live, oral 0 1997 [id number] 25 [facility] ([place]) complet ed typhoid vaccine, live, oral DoD yellow fever vaccine [id number] 37 [facility] yellow fever vaccine 04/07/98 Given Ambulat ory Pharmac y yellow fever vaccine 0 [id number] 37 [facility] yellow fever vaccine DoD hepatitis A adult vaccine [id number] 52 [facility] complet ed hepatitis A adult vaccine 12/31/97 Given Ambulat ory Pharmac y hepatitis A vaccine, adult dosage 2 [id number] 52 [facility] hepatitis A vaccine, adult dosage DoD hepatitis A adult vaccine [id number] [facility] complet ed hepatitis A adult vaccine 07/03/97 Given Ambulat ory Pharmac y measles/mumps /rubella virus vaccine 1996 03 complet ed measles/m umps/rube lla virus vaccine 07/03/97 Given Ambulat ory Pharmac y poliovirus vaccine, live, oral 1996 02 complet ed polioviru s vaccine, live, oral 07/03/97 Given Ambulat ory Pharmac y trivalent poliovirus vaccine, live, oral 0 1996 02 () complet ed trivalent polioviru s vaccine, live, oral DoD measles, mumps and rubella virus vaccine 0 1996 03 () complet ed measles, mumps and rubella virus vaccine DoD hepatitis A vaccine, adult dosage 1 [id number] [place] (CON) complet ed hepatitis A vaccine, adult dosage DoD influenza virus vaccine, whole virus 1996 16 complet ed influenza virus vaccine, whole virus 06/26/97 Given Ambulat ory Pharmac y meningococcal polysaccharid e (MPSV4) 1996 32 complet ed meningoco ccal polysacch aride (MPSV4) 06/26/97 Given Ambulat ory Pharmac y tetanus-dipht h toxoids (Td) adult/adol 1996 09 complet ed tetanus-d iphth toxoids (Td) adult/ado l 06/26/97 Given Ambulat ory Pharmac y tetanus and diphtheria toxoids, adsorbed, preservative free, for adult use (2 Lf of tetanus toxoid and 2 Lf of diphtheria toxoid) 0 1996 09 () complet ed tetanus and diphtheri a toxoids, adsorbed, preservat surya free, for adult use (2 Lf of tetanus toxoid and 2 Lf of diphtheri a toxoid) DoD influenza virus vaccine, whole virus 0 1996 16 () complet ed influenza virus vaccine, whole virus DoD meningococcal polysaccharid e vaccine (MPSV4) 0 1996 32 () complet ed meningoco ccal polysacch aride vaccine (MPSV4) DoD Encounters Combined list of: 1) Encounters from Department of Veterans Affairs facilities going backup to the last 18 months, not all VA inpatient encounters are included; 2) Encounters from the Department of Defense facilities going backup to 280 months. Location Location Details Encounter Type Encounter Number Reason For Visit Attending Provider ADM Date DC Date Status Disposition Source [employer]([facility]) OUTPATIENT [id number] VANDA Rodriguez 06/30 Released w/o Limitations [employer]( [facility]) [employer]([facility]) OUTPATIENT [id number] skin irritat DESIREE Parks 07/12 Released w/o Limitations [employer](F HC Clinic) [employer]([facility] ) OUTPATIENT [id number] vas corporate counselor GABY Smiley 05/07 Released w/o Limitations [employer](F amily Medicin e Residen ) [address] [place] [address]([facility] ) OUTPATIENT [id number] vas surgery ANNA GABY Lyn 05/11 Released w/o Limitations [facility] Medical [facility](F amily Medicin e Residen cy) [address] [place] [address]([facility]) TELE CONSULT [id number] GIORGIO Cortez 11/[address] [place] [address]([facility]) [address] [place] [address]([facility]) OUTPATIENT [id number] lisa khalil to dermoto eddie for mole on back and dry skin on hands DESIREE OSMAN 11/27 Released w/o Limitations [address] [place] [address]([facility]) [address] [place] [address]([facility]) TELE CONSULT [id number] DENY Hull 12/[address] [place] [address]([facility]) [address] [place] [address]([facility]) OUTPATIENT [id number] RASH ON HANDS AND SKIN COMING OFF.. LIVE HAGAN 01/03 Released w/o Limitations [address] [place] [address]([facility]) [address] [place] [address]([facility]) OUTPATIENT [id number] follow up on shoulde r pain ADEEL ALEXANDRA. 01/11 Released w/o Limitations [address] [place] [address]([facility]) [address] [place] [address]([facility]) TELE CONSULT [id number] JEIMY Pak I 04/[address] [place] [address]([facility]) [address] [place] [address]([facility]) OUTPATIENT [id number] atopic dermati tis KELLY JOSEPH 05/13 Released w/o Limitations [address] [place] [address](D ermatol ogy Clinic) [address] [place] [address]([facility]) TELE CONSULT [id number] ReferJEIMY Ramirez I 09/[address] [place] [address]([facility]) [address] [place] [address]([facility]) OUTPATIENT [id number] leg problem s pain poss due to nerve ADEEL ALEXANDRA. 11/04 Released w/o Limitations [address] [place] [address]([facility]) [address] [place] [address]([facility]) OUTPATIENT [id number] pha, web site complet ed SALVATORE RDZ 12/29 Released w/o Limitations [employer]([facility]) [employer]([facility]) OUTPATIENT [id number] blood in urine/n oc SHANE BLAND 04/28 Released w/o Limitations [employer]([facility]) [employer]([facility]) TELE CONSULT [id number] ct scan HUDSON RICHARDSON Lisa 04/29 [employer]([facility] e Clinic) [employer]([facility]) TELE CONSULT [id number] 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) [facility] Oper Med [facility] OUTPATIENT [id number] possibl e staph infecti on on (R) hand MARTY ECHEVERRIA 09/22 Released w/o Limitations [facility]( [facility] D_AD) [facility]) DENTAL [id number] broken /chippe d tooth HAZEL LEWIS 03/15 Released w/o Limitations [facility]( [facility]) [facility]) DENTAL [id number] Def Adolfo #1 KIM LOAIZA 03/15 Released w/o Limitations [facility]( [facility]) [facility]) DENTAL [id number] exam ELISABETH RIOS L 05/18 Released w/o Limitations [facility]( [facility]) [facility]) DENTAL [id number] pro ELISABETH RIOS L 05/18 Released w/o Limitations [facility]( [facility]) [facility]Op [facility]ational Medicine [facility]) OUTPATIENT [id number] well GALEN Pollard 06/16 Released w/o Limitations [facility]( Operati onal Medicin e MG) [facility] [employer] [facility]) TELE CONSULT [id number] positiv e strep ANKUSH OLIVA 10/14 [facility]( [employer] MG) [facility](Op erational Medicine MG) OUTPATIENT [id number] ANATOLY Santana 08/23 Released w/o Limitations [facility]( Operati onal Medicin e MG) [facility]([employer] s MG) OUTPATIENT [id number] pre deploym ent ANATOLY QUICK N 09/30 Released w/o Limitations [facility]( [employer] MG) [facility]([employer] MG) OUTPATIENT [id number] poss wart ANATOLY QUICK N 11/02 Released w/o Limitations [facility]( [employer] [facility]) Theater Facility OUTPATIENT [id number] 02/20 Released w/o Limitations Theater Facilit y [facility](Op erational Medicine MG) OUTPATIENT [id number] post deploym ent ADEEL ESTEVEZ 05/09 Released w/o Limitations [facility]( Operati onal Medicin e MG) [facility](Op erational Medicine MG) OUTPATIENT [id number] Post-De APRIL Jesus 05/10 Released w/o Limitations [facility]( Operati onal Medicin e MG) [facility](Mi litary Med QB) OUTPATIENT [id number] sore throat [phone] KELLY NARAYAN 05/28 Released w/o Limitations [facility]( Militar y Med QB) [facility](Mi litary Med QB) OUTPATIENT [id number] Abdomin al Pain and Bloatin g [id number] BHAVNA ASIF 11/19 Released w/o Limitations [facility]( Militar y Med QB) [facility](De ployment Health Qu) OUTPATIENT [id number] Notes Entered by: MERLE RODARTE 02 Jun 2013 1531 ------- ------- ------- ------- -- flu mist MERLE RODARTE 06/02 Released w/o Limitations [facility]( Deploym ent Health Qu) [facility](Mi litary Med QB) OUTPATIENT [id number] Sore Throat TARA GALLEGOS 11/21 Released w/o Limitations [facility]( Militar y Med QB) [facility](De ployment Health Qu) OUTPATIENT [id number] CHACE Chaves 02/16 Released w/o Limitations [facility]( Deploym ent Health Qu) [facility] [place]) OUTPATIENT [id number] ree/ad TRISH RAINES Tae 02/19 Released w/o Limitations [facility]( Optomet ry [facility] [place] o) [employer]([facility] M[facility]C Green) OUTPATIENT [id number] (PCM Araceli ) PARISA Diop 06/29 Released w/o Limitations [employer](A MH M01C Green) [employer]([facility] M01A Blue) OUTPATIENT [id number] Notes Entered by: NICOLE BORDEN 14 Oct 2015 0921 ------- ------- ------- ------- -- ROSEANNE STONE V 10/13 Released w/o Limitations [employer](A MH M01A Blue) [employer]([facility] M01C Green) OUTPATIENT [id number] pcm araceli /[place] JUAN ZUNIGA 10/20 Released w/o Limitations [employer](A MH M01C Green) [employer]([facility] M01A Blue) OUTPATIENT [id number] Notes Entered by: NICOLE BORDEN 21 Oct 2015 1138 ------- ------- ------- ------- -- KAROI ON - ROSEANNE PARRISH V 10/20 Released w/o Limitations [employer](A MH M01A Blue) [employer]([facility] M01A Blue) TELE CONSULT [id number] Notes Entered by: ROSEANNE ESPINOZA V 26 Oct 2015 1633 ------- ------- ------- ------- -- Jodie/ROSEANNE Yen V 10/25 [employer](A MH M01A Blue) [employer]([facility] M01A Blue) OUTPATIENT [id number] Notes Entered by: ROSEANNE ESPINOZA V 28 Oct 2015 1603 ------- ------- ------- ------- -- NIRAV ESPINOZA ROSEANNE Felix 10/27 Released w/o Limitations [employer](A MH M01A Blue) [employer](PENDING SALE TO [facility] M01C Green) OUTPATIENT [id number] YELLOW FEVER AFRICOM ROSAURA LUJAN 10/28 Released w/o Limitations [employer](A MH M01C Green) [employer](PENDING SALE TO [facility] M01C Green) OUTPATIENT [id number] YELLOW FEVER ROSAURA LUJAN 11/04 Released w/o Limitations [employer](A MH M01C Green) [facility] N Deploymen t Hlth Assess) OUTPATIENT [id number] pre dha/has OZIEL Nickerson 03/01 Released w/o Limitations [facility](ZZZ RSN Deploym ent Hlth Assess) [facility] N Deploymen t Hlth Assess) TELE CONSULT [id number] Notes Entered by: Kylah LAMBERT 15 Mar 2016 1128 ------- ------- ------- ------- -- member require s travel med [employer] 03/15 [facility](ZZZ RSN Deploym ent Hlth Assess) [facility] Element C-1) TELE CONSULT [id number] Notes Entered by: RAJINDER NICHOLS 18 May 2016 1004 ------- ------- ------- ------- -- INPROCE RAJINDER MARTINES 05/18 [facility] Element C-1) Theater Facility OUTPATIENT [id number] Theater Provider 11/03 Released w/o Limitations [facility] y [facility] OUTPATIENT [id number] Theater Provider 11/22 Released w/o Limitations [facility] Theater Facility OUTPATIENT [id number] Theater Provider 03/08 Released w/o Limitations Theater Facilit y [facility] Element B-1) TELE CONSULT [id number] Notes Entered by: Lyn GAMBOA 21 Mar 2017 1108 ------- ------- ------- ------- -- Mbr require s referra l WITHIN 30 days to PCM due to issues identif ied in CAROL MCCOY 03/21 [facility] Element B-1) [facility] Element C-1) OUTPATIENT [id number] lower back pain/ spine ache/ just returne d from deploym JACQUELINE Aguila 04/09 Released w/o Limitations [facility] Element C-1) [facility] OP Medicine Clinic) OUTPATIENT [id number] VANDA TORRES 06/11 Released w/o Limitations [facility] OP Medicin e Clinic) [facility] Element C-1) OUTPATIENT [id number] [facility] GUANAKO TAPIA 06/12 Released w/o Limitations [facility] Element C-1) [facility] Element C-1) OUTPATIENT [id number] bumps on testicl es GULSHAN CAMPOS 12/21 Released w/o Limitations [facility] Element C-1) [facility] Disenroll ment) OUTPATIENT [id number] ongoing back and hip pain [phone] MARIAELENA DEVINE A 04/30 Released w/o Limitations [facility] Disenro llment) [facility] OP Medicine Clinic) OUTPATIENT [id number] Notes Entered by: BAY LOCKETT 06 Jun 2018 1052 ------- ------- ------- ------- -- OSBALDO/VANDA LUCIO 06/06 Released w/o Limitations [facility] Base OP Medicin e Clinic) [facility] Physical Therapy) OUTPATIENT [id number] Pain in right hip/709 [id number] ELISA HENRY L 06/10 Released w/o Limitations [facility] Physica l Therapy ) [facility] Element C-1) OUTPATIENT [id number] VIRTUAL PHA RODRÍGUEZ JAMIL 06/11 Released w/o Limitations [facility] Element C-1) [facility] Element C-1) OUTPATIENT [id number] 1 neck/up per back problem [id number] RODRÍGUEZ JAMIL 07/03 Released w/o Limitations [facility] Element C-1) [facility] Element C-1) OUTPATIENT [id number] Recurri ng pain in wrist/g rip resulti ng from 2011 fall ROSAURA FORTE 07/17 Released w/o Limitations [facility] Element C-1) [facility] Element C-1) TELE CONSULT [id number] Notes Entered by: JOHN AVERY 19 Jul 2018 0750 ------- ------- ------- ------- -- Triquet ral fractur e ROSAURA FORTE 07/19 [facility] Element C-1) [facility] cs) OUTPATIENT [id number] Nondisp laced fractur e of triquet rum [cuneif orm] bone, right wrist, initial enc GRIEPJORJE G 07/30 Released w/o Limitations [facility] Orthope dics) [facility] Element C-1) TELE CONSULT [id number] Notes Entered by: Rajat STOKES 09 Aug 2018 1023 ------- ------- ------- ------- -- Consult Results /Referr al ManageRODRÍGUEZ Chung 08/09 [facility] Element C-1) [facility] Element C-1) OUTPATIENT [id number] Migrain e. NAL-RODRÍGUEZ ACEVEDO 09/11 Released w/o Limitations [facility] C[facility]) [facility] Behavior[facility] l Hlt Opt) OUTPATIENT [id number] NPRP--I nitial Assessm RIGOBERTO Galo 02/19 Released w/o Limitations [facility](RSN FP Behavio ral Hlt Opt) [address] [place] [address] Michael Elizabeth [facility]War rior Op Med Cln Tm A Ad) OUTPATIENT [id number] Concern of derm issues on neck / back [id number] JORJE VILLASEÑOR 05/09 Released w/o Limitations [address] [place] [address] Michael Elizabeth [facility])(W arrior Op Med Cln Tm A Ad) [address] [place] [address] Michael [facility])(War rior Op Med Cln Tm A Ad) OUTPATIENT [id number] Punch Biopsy of moles JORJE VILLASEÑOR 05/30 Released w/o Limitations [address] [place] [address])(W arrior Op Med Cln Tm A Ad) [address] [place] [address])(Opt ometry) OUTPATIENT [id number] Routine eye exam [id number] MATILDA BONILLA 07/07 Released w/o Limitations [address] [place] [address])(O ptometr y) [address] [place] [address])(War rior Op Med Cln Tm A Ad) TELE CONSULT [id number] Notes Entered by: TODD CLAYTON 08 Aug 2019 1136 ------- ------- ------- ------- -- Sx - Stomach Pain (off/on )/Ellailyn ge/256. 6109 VANDA PRIETO 08/08 Other Not Elsewhere Classified [address] [place] [address])(W arrior Op Med Cln Tm A Ad) [address] [place] [address])(War rior Op Med Cln Tm A Ad) OUTPATIENT [id number] ABD josein- [id number] DEMONDALLY ANDRADE Rajat Nicholson 08/08 Released w/o Limitations [address] [place] [address])(W arrior Op Med Cln Tm A Ad) [address] [place] [address])(War rior Op Med Cln Tm A Ad) TELE CONSULT [id number] Notes Entered by: DAISY SOUZA 20 Apr 2020 1324 ------- ------- ------- ------- -- Throat- Anxiety Appt/PENG DRISCOLL/6 [phone]. [phone] NEVA STANTON 04/20 Released to [facility] [address] [place] [address])(W arrior Op Med Cln Tm A Ad) [address] [place] [address])(War rior Op Med Cln Tm A Ad) OUTPATIENT [id number] FTF/anx iety?/t hroat pain JORJE VILLASEÑOR 04/29 Released w/o Limitations [address] [place] [address])(W arrior Op Med Cln Tm A Ad) [address] [place] [address])(Sco tt CTF [facility]) OUTPATIENT [id number] Anxiety CHATO BONILLA 05/12 Released w/o Limitations [address] [place] [address])([facility] [address] [place] [address] Michael [facility])(Oro tt CTF OP) OUTPATIENT [id number] [facility] FU APPT [id number] F2F CHATO BONILLA 05/26 Released w/o Limitations [address] [place] [address])(S cott CTF [facility]OP) [address] [place] [address])(War rior Op Med Cln Tm A Ad) TELE CONSULT [id number] Notes Entered by: BANG CHRISTIANSON RET R 14 Jun 2020 0734 ------- ------- ------- ------- -- SX:Covpepper corral screeni ng pain with breathi pricilla/Orquidea justin/ *p NEVA Prescott 06/14 Referred- Emergency Department [address] [place] [address])(W arrior Op Med Cln Tm A Ad) [address] [place] [address])(War rior Op Med Cln Tm A Ad) TELE CONSULT [id number] Notes Entered by: CHARLOTTE BOSWELL 29 Nov 2020 1218 ------- ------- ------- ------- -- Sx-Mult iple issues/ [place] / PITA ASHBY 11/29 Released to [facility] [address] [place] [address])(W arrior Op Med Cln Tm A Ad) [address] [place] [address])(War rior Op Med Cln Tm A Ad) TELE CONSULT [id number] Notes Entered by: JOE LOMBARDO 07 Dec 2020 0919 ------- ------- ------- ------- -- Network Results Urgent Care 021 CONTRERASP JORJE VILLASEÑOR 12/[address] [place] [address])(W arrior Op Med Cln Tm A Ad) [address] [place] [address])(War rior Op Med Cln Tm A Ad) OUTPATIENT [id number] f/u athlete s foot and right foot numbnes s/ f2f JORJE VILLASEÑOR 12/15 Released w/o Limitations [address] [place] [address])(W arrior Op Med Cln Tm A Ad) [address] [place] [address])([facility]) OUTPATIENT [id number] SPORTS/ Mononeu ropathy , unspeci ROSE Saab 12/23 Released w/o Limitations [facility] Michael DIALLO ([facility]S ports Med Clinic/ Pain Mgmt) [address] [place] [address] Michael [facility] ([facility]Phy sical Therapy) OUTPATIENT [id number] 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, right leg, initial encount ORA Grullon H 12/28 Released w/o Limitations [facility] Michael DIALLO ([facility]P hysical Therapy ) [address] [place] [address] Michael Elizabeth [facility])(Spo rts Med Clinic/Pa in Mgmt) OUTPATIENT [id number] SPORTS/ F/U MRI RESULT ROSE GARCÍA 01/17 Released w/o Limitations [facility] Michael DIALLO ([facility]S ports Med Clinic/ Pain Mgmt) [address] [place] [address] Michael Elizabeth ([facility]Bas e Operation al Medicine Clin) OUTPATIENT [id number] MALINI HERRERA 02/23 Released w/o Limitations [address] [place] [address] Michael DIALLO ([facility])(B ase Operati onal Medicin e Clin) [address] [place] [address] Michael DIALLO ([facility]Bas e Operation al Medicine Clin) OUTPATIENT [id number] [facility] PHA JORJE VILLASEÑOR 02/24 Released w/o Limitations [address] [place] [address] Michael DIALLO ([facility]B ase Operati onal Medicin e Clin) [address] [place] [address] Michael DIALLO ([facility]War rior Op Med Cln Tm A Ad) OUTPATIENT [id number] [facility] [id number] JORJE VILLASEÑOR 03/02 Released w/o Limitations [address] [place] [address] Michael DIALLO [facility]W arrior Op Med Cln Tm A Ad) [address] [place] [address] Michael DIALLO ([facility]War rior Op Med Cln Tm A Ad) OUTPATIENT [id number] moles on back and left ear in person [phone] JORJE VILLASEÑOR 03/30 Released w/o Limitations [address] [place] [address] Michael DIALLO ([facility]W arrior Op Med Cln Tm A Ad) [facility] Outpatient Encounter [id number] 11/11 [facility] Procedures Combined list of: 1) Procedures from Department of Veterans Affairs facilities going back up to thelast 18 months, not all [place] non-surgical procedures are included; 2) All procedures from the Department of Defense facilities. Procedure Procedure Type Code Date Perfomer Comments Sourc e No data is provided for this section because a [facility] internal system error occurred when retrieving data. A future request for this document may succe fully include data for this section if the system i ue has been resolved. DoD No data available for this section Ambulatory P harmacy Social History Combined list of available smoking, tobacco, and other social history from Department of Defense and Veterans Affairs facilities. Social History Type Response Date Comment Sourc e This section is an empty social history section. DoD Assessment and Plan Combined list of future care activities from Department of Defense and Veterans Affairs facilities (e.g., assessment and plan notes, appointments, orders, and referrals). Additional future care activities may be listed in the Plan of Care section. Result Assessment and Plan Date Source Assessment and Plan No data available for this section 10/21/2024 Ambulatory Pharmacy Functional Status Combined list of recent functional and cognitive assessments recorded at Department of Defense and Veterans Affairs ([place] Functional [place] Measurement (FIM) Scale: 1 = Total Assistance (Subject = 0% +), 2 = Maximal Assistance (Subject = 25% +), 3 = Moderate Assistance (Subject = 50% +), 4 = Minimal Assistance (Subject = 75% +), 5 = Supervision, 6 = Modified [place] (Device), 7 = Complete [place] (Timely, Safely). Assessment Date/Time Source Assessment Type Assessment Skill Assessment Score Assessment Details No data available for this section
== END 2024-10-21 11:28 | disposition home or self-care (01) ==
LOC: ANHIMG 11:33
PROVIDERS: PCP Internal Medicine; Visit Provider Nurse Practitioner
DX: M25.552 Pain in left hip (principal)
CPT/HCPCS: 73502